=== PATIENT | female | born 1990 | race Caucasian/White ===

== ENCOUNTER 2017-10-27 14:30 | Emergency (ER) | payer OTHER ==
[~2017-10-27] VITALS: Ht 165.1 cm; Wt 130.1 kg
[2017-10-27 14:48] VITALS: TEMP 37.5; Ht 165.1 cm; Wt 130.1 kg
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
[2017-10-27] MEDS ORDERED: ACETAMINOPHEN IV 100 ML IV STA (15:22)
[2017-10-27] MEDS ORDERED: SODIUM CHLORIDE 0.9% 1000ML 1,000 ML IV STA (15:22)
[2017-10-27] MEDS ORDERED: ACET-1256 PO (15:41)
[2017-10-27] MEDS ORDERED: PRENTAB26 PO (15:41)
[2017-10-27 16:22] LABS: BASO % 0.1 %; BASO ABS # 0.01 K/uL (0-0.2); EOS % 0.4 %; EOS ABS # 0.05 K/uL (0-0.5); HEMATOCRIT 32.9 % (37-47); HEMOGLOBIN 10.9 g/dL (12.0-16.0); IG# 0.05 K/uL (0.00-0.02); LYMPH % 21.2 %; LYMPH ABS # 2.63 K/uL (1.2-3.4); MEAN CELL VOLUME 82.3 fL (80-100); MEAN CORPUSCULAR HEMOGLOBIN 27.3 pg (25-34); MEAN CORPUSCULAR HGB CONC 33.1 g/dl (32-36); MEAN PLATELET VOLUME 9.7 fL (7.4-10.4); MONO % 4.9 %; MONO ABS # 0.61 K/uL (0.11-0.59); NEUT ABS # 9.06 K/uL (1.4-6.5); PLATELET COUNT 321 K/uL (130-400); RED CELL DISTRIBUTION WIDTH CV 13.7 % (11.5-14.5); RED CELL DISTRIBUTION WIDTH SD 41.3 fL (36.4-46.3); WHITE BLOOD COUNT 12.41 K/uL (4.8-10.8)
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
[2017-10-27 16:45] LABS: ALBUMIN 2.5 gm/dl (3.4-5.0); CALCIUM 8.8 mg/dl (8.5-10.1); CREATININE 0.53 mg/dl (0.60-1.20); POTASSIUM 3.7 mmol/L (3.5-5.1)
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
[2017-10-27] MEDS ORDERED: CEPH500C2 PO (19:05)
[2017-10-27] MEDS ORDERED: CEPHALEXIN MONOHYDRATE 250 MG CAP PO STA (19:06)
[2017-10-27 19:27] VITALS: BP 153/86; PULSE 99; O2SAT 99
== END 2017-10-27 21:38 | disposition home or self-care (01) ==
LOC: EDBD 14:30 → C.EDB 14:32
DX: M54.2 Cervicalgia (principal); M54.6 Pain in thoracic spine; M54.5 Low back pain; R07.9 Chest pain, unspecified; V86 Occupant of special all-terrain or other off-road motor vehicle, injured in transport accident; R03.0 Elevated blood-pressure reading, without diagnosis of hypertension; Z3A.22 22 weeks gestation of pregnancy; Z88.8 Allergy status to other drugs, medicaments and biological substances